=== PATIENT | female | born 2000 | race Caucasian/White ===

== ENCOUNTER 2023-04-20 00:04 | Emergency (ER) | payer OTHER, BC ==
[~2023-04-20] VITALS: Ht 175.3 cm; Wt 50.0 kg
[2023-04-20 00:07] VITALS: O2SAT 98
[2023-04-20] MEDS ORDERED: SODIUM CHLORIDE 0.9% 1,000 ML IV ONE (01:45)
[2023-04-20 02:05] LABS: CHLORIDE 105 mEq/L (98-107)
[2023-04-20 02:06] LABS: BASOPHILS % 0.4 % (0.0-2.0); EOSINOPHILS % 1.1 % (0.0-5.0); HEMATOCRIT. 34.3 % (36.0-48.0); HEMOGLOBIN. 12.3 g/dL (12.0-16.0); LYMPHOCYTES % 20.6 % (20.0-50.0); MEAN CORPUSCULAR HEMOGLOBIN 31.3 pg (28.0-32.0); MEAN CORPUSCULAR VOLUME 87.3 fL (81.0-99.0); MEAN PLATELET VOLUME 9.6 fl (7.4-10.4); MONOCYTES % 3.6 % (2.0-8.0); NEUTROPHILS % 74.3 % (40.0-76.0); PLATELET 201 x1000/uL (130-400); RED BLOOD CELL COUNT 3.93 mill/uL (4.2-5.4); RED CELL DISTRIBUTION WIDTH 12.8 % (11.6-14.6)
[2023-04-20 02:36] LABS: HCG SCREEN NEGATIVE
[2023-04-20 04:00] VITALS: BP 117/72; PULSE 88; RESP 15
[2023-04-20] MEDS ORDERED: IOHEXOL-350 100 ML BOTTLE ONE (04:25)
== END 2023-04-20 04:55 | disposition home or self-care (01) ==
LOC: ER 00:04
DX: R55 Syncope and collapse (principal); I95.9 Hypotension, unspecified
CPT/HCPCS: 80053; 84703; 85025; 85379; 36415; 71275; 93005; 96360; 96361; 99285; Q9967; J7030; Z7610